=== PATIENT | female | born 1965 | race Caucasian/White ===

== ENCOUNTER → 2016-11-16 | Outpatient (CLI) | payer OTHER ==
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
== END ==
LOC: RADUSWWP 15:23
PROVIDERS: ATTEND Internal Medicine
DX: M79.661 Pain in right lower leg (principal); R22.41 Localized swelling, mass and lump, right lower limb

== ENCOUNTER 2016-12-20 13:11 | Observation (INO) | payer OTHER ==
[2016-12-05 12:39] VITALS: BMI 32.1
[~2016-12-20 13:11] MED LIST: DEXAMETHASONE SOD PHOSPHATE 10 MG/ML 1 ML VIAL IV ONE; HYDROmorphone 1 MG/ML 1 ML SYRINGE IVP PRN; LIDOCAINE 1% 20 ML VIAL (10MG/ML) FOR IV START INTRADERMA PRN; MIDAZOLAM 2 MG/2 ML VIAL IV PRN; SCOPOLAMINE 1.5MG/72HR PATCH TRANSDERM ONE; ceFAZolin 2 GM in SODIUM CHLORIDE 0.9% 100 ML IVPB ONE
[2016-12-20] MEDS: LACTATED RINGERS 1,000 ML IV SCH (13:39)
[2016-12-20] MEDS: ONDANSETRON 4 MG/2 ML VIAL IVP ONE ×2 (13:43→19:55)
[2016-12-20] MEDS ORDERED: LIDOCAINE 1% INJ 10MG/ML (20 ML MDV) ONE (14:53)
[2016-12-20] MEDS ORDERED: KETOROLAC 30 MG/ML 1 ML VIAL ONE (14:53)
[2016-12-20] MEDS ORDERED: MIDAZOLAM 2 MG/2 ML VIAL ONE (14:53)
[2016-12-20] MEDS ORDERED: METOPROLOL TARTRATE 5 MG/5 ML VIAL IVP ONE (14:53)
[2016-12-20] MEDS ORDERED: SUCCINYLCHOLINE CHLORIDE 100 MG/5 ML SYR IV ONE (14:53)
[2016-12-20] MEDS ORDERED: fentaNYL (PF) 50 MCG/ML 2 ML AMP ONE (14:53)
[2016-12-20] MEDS ORDERED: PROPOFOL 10 MG/ML 20 ML VIAL IV ONE (14:53)
[2016-12-20] MEDS ORDERED: HYDROmorphone (PF) 1 MG/ML ONE (14:53)
[2016-12-20] MEDS ORDERED: ceFAZolin 1,000 MG in SODIUM CHLORIDE 0.9% 1,000 ML IRRIGATION ONE (15:24)
[2016-12-20] MEDS ORDERED: LACTATED RINGERS 1,000 ML IV ONE (16:15)
[2016-12-20] MEDS ORDERED: DIAZEPAM 5 MG TAB PO PRN (18:24)
[2016-12-20] MEDS ORDERED: HYDROmorphone 1 MG/ML 1 ML SYRINGE IVP PRN (18:24)
[2016-12-20] MEDS ORDERED: NALOXONE 0.4 MG/ML 1 ML VIAL IV PRN (18:24)
[2016-12-20] MEDS ORDERED: MAGNESIUM HYDROXIDE 2,400 MG/10 ML CUP PO PRN (18:24)
[2016-12-20] MEDS ORDERED: ONDANSETRON 4 MG/2 ML VIAL IVP PRN (18:24)
[2016-12-20] MEDS ORDERED: ROPIVACAINE 5 MG/ML 30 ML VIAL MISCELLANE ONE (18:27)
[2016-12-20] MEDS: ENOXAPARIN 30 MG/0.3 ML SYRINGE SQ SCH (20:20)
[2016-12-20] MEDS: SENNOSIDES-DOCUSATE SODIUM 1 EACH TAB PO SCH (20:20)
[2016-12-20] MEDS: CALCIUM CARBONATE 500 MG CHEWABLE PO SCH (20:21)
[2016-12-20] MEDS: ceFAZolin 2 GM in SODIUM CHLORIDE 0.9% 100 ML IVPB SCH (22:54)
[2016-12-21] MEDS: HYDROcodone/APAP 5-325MG 1 EACH TAB PO PRN ×3 (00:45→19:29)
[2016-12-21] MEDS: HYDROmorphone 1 MG/ML 1 ML SYRINGE IVP PRN ×2 (02:55→08:54)
[2016-12-21] MEDS: LACTATED RINGERS 1,000 ML IV SCH (06:09)
--- NOTE | 2016-12-21 06:40 | FL ---
FLUOROSCOPY 4 minutes and 54 seconds of fluoroscopy time were utilized during internal fixation of the left foot. 2 images document the procedure.
[2016-12-21] MEDS ORDERED: ONDANSETRON 4 MG/2 ML VIAL IVP PRN (08:09)
[2016-12-21] MEDS: ceFAZolin 2 GM in SODIUM CHLORIDE 0.9% 100 ML IVPB SCH (08:54)
[2016-12-21] MEDS: CALCIUM CARBONATE 500 MG CHEWABLE PO SCH ×3 (09:02→20:54)
--- NOTE | 2016-12-21 10:31 | P.OP ---
Date of Procedure: 12/20/16 Preoperative Diagnosis: 1. Closed, comminuted left navicular body fracture 2. Left talonavicular joint dislocation Postoperative Diagnosis: Same Procedure(s) Performed: 1. Left talonavicular fusion 2. Open reduction of left talonavicular dislocation 3. Open reduction and internal fixation of left navicular fracture Implants: Anesthesia: CESAR, [facility] Surgeon: Sarmad Mitchell Estimated Blood Loss (ml): 150 IV fluids (ml): 1,100 Condition: stable Disposition: PACU Indications for Procedure: The patient is a very pleasant 51-year-old female who is a former smoker. The patient sustained an isolated injury to her left foot when she fell in October 2016. She was initially seen at an outside hospital where x-rays and a computed tomography scan were taken of her left foot which showed a comminuted navicular fracture and dislocation of the talonavicular joint. She was placed in a splint and follow-up was arranged to local hospital. The patient wanted to be treated closer to home so she followed up in our office with my partner a week later. She was then referred to me. I initially saw the patient several weeks out from her injury and the talonavicular joint was still dislocated with no prior attempts at reduction. I had a lengthy discussion with the patient and her on treatment. We discussed open reduction and internal fixation of the talonavicular joint and navicular fracture versus a primary fusion of the talonavicular joint. I reviewed the computed tomography scan with the patient and her which showed a complicated navicular fracture with comminution of the lateral aspect of the navicular, dislocation of the talonavicular joint, and a large impaction injury of the talar head. Due to the extensive damage to the joint and the patient being over 50 years old my recommendation was to proceed with a primary fusion. The patient and her understood the implications and loss of function associated with a fusion. They also understand the severe nature of her injury and her delayed presentation to my office. We discussed the potential risks and complications of surgery including but not limited to risk of anesthesia, risk of superficial infection, risk of deep infection, risk of nonunion of the fusion site, risk of delayed union of the fusion site, risk of malunion of the fusion, risk of postoperative instability with re-displacement of the dislocation, risk of damage to local blood vessels resulting in loss of blood flow to the foot, risk of damage to local sensory nerves resulting in temporary or permanent numbness, risk of chronic pain, risk of chronic swelling, risk of decreased motion of the foot due to the fusion, risk of adjacent joint arthritis, risk of symptomatic hardware, risk of difficulty regaining preinjury level of function, risk of need for further surgery, risk of generalized dissatisfaction with surgery, and possibly loss of life or limb. Again the patient understands the implications of a fusion and requested that I go forward with a primary fusion of her injury. Both her and her provided their verbal and written consent to go forward with surgery. Operative Findings: Was a highly comminuted navicular fracture with multiple loose pieces. There was a large impaction injury of the talar head involving one third the joint surface Description of Procedure: The patient was identified in preoperative holding and the correct left leg was marked with my initials. I reviewed the consent form with the patient and her and all of their questions were answered. The patient was then brought back to the operating room by anesthesia and positioned on the OR table. A general anesthetic and preoperative antibiotics were administered. A tourniquet was applied to the proximal aspect of the left thigh. A bone foam bump was placed under her left buttock internally rotating the leg to neutral. The patient's leg was then prepped and draped in the standard sterile fashion. Prior to starting surgery timeout was performed identifying the correct patient , operative extremity, and procedure. He did, exsanguinated with an Esmarch bandage, and the tourniquet was inflated to 250 mmHg. I began by outlining a medial incision the talonavicular joint starting at the tip of the medial malleolus and ending over the medial cuneiform. Skin incision was made with a 15 blade scalpel and dissection was carried down carefully to the subcutaneous tissue with tenotomy scissors. Crossing sensory nerves tract did and veins were controlled with electrocautery. I developed the interval between the tibialis anterior and posterior tibial tendon. Upon incising the talonavicular joint capsule there was a large kat of hematoma. The joint was then opened and exposed. On inspection of the joint there was a very large impaction injury involving one third of the talar head. There is significant comminution of the navicular with multiple intra-articular fragments. K wires a joint distractor were placed with 1 in the talar neck and the other in the medial and middle cuneiform. Distractor was placed over the K wires and gently opened to allow further inspection of the joint. Due to the level of comminution and damage to the talar head I decided to go forward with the fusion. Articular cartilages removed from the visible portion of the joint with a series of osteotomes and curettes. A second incision was then made over the lateral aspect of the foot in line with the fourth metatarsal. Skin incision was made to 15 blade scalpel and dissection was carried down carefully to subcutaneous tissue with tenotomy scissors. The extensor tendons were retracted and the intrinsic foot muscles were incised and retracted. I came down upon the lateral aspect of the talonavicular joint. There was 1 large articular fragment and multiple small osteochondral fragments. The small fracture fragments were debrided and removed. The articular cartilage on the large navicular fragment and lateral third of the talar head were removed. 0.0 mm drill bit was used to perforate the talar head and large fragments of the navicular. At this point I attempted to fix the large lateral fragment to the main talar body fragment. A K wire was placed from lateral to medial across this large fragment into the medial talar body. A partially threaded cannulated 3.0 mm screw was placed across the K wire generating compression of the dorsal lateral fragment to the talar body. At this point attention was turned to the knee to obtain bone graft. A longitudinal incision was made just lateral to the tibial tubercle over Kiesha' s tubercle. Skin incision was made a 15 blade scalpel and dissection was carried down carefully to the fascia over the anterior musculature which was also incised longitudinally in line with the skin incision. The muscle was gently dissected off of the anterolateral tibia and a 4.5 mm drill bit was used to create a hole in the tibia. Using a curved curet cancellus bone was harvested from the proximal tibia and handed off to the back table. Once an adequate amount of bone had been harvested a clean sponge was placed in the wound to help achieve hemostasis. Attention was then turned back to the foot. The bone graft previously harvested was mixed with Augment to help facilitate fusion. The mixture of bone graft and augment was then placed in the talonavicular joint. I then carefully reduced the joint and held the reduction with multiple K wires for cannulated 45 screws. I placed 3 screws medially through the main navicular body fragment and tuberosity into the talus. Partially threaded cannulated 4.5 screws were placed generating excellent compression. The position of the screws were verified with C-arm fluoroscopy. The talonavicular joint appeared to be reduced on a lateral view of the foot and AP view of the foot and the screws appeared to be crossing the talonavicular joint without any intra- articular violation. I then placed a fourth screw over the dorsal aspect of the midfoot through a stab incision. A stab incision was made between the medial and lateral incision. A K wire was placed over the navicular aiming toward the talar head. A partially-threaded 45 screw was placed across the joint. At this point final x-rays were taken. The joint appeared to be reduced and there was compression across the talonavicular joint with all of the screws. None of the screws were intra-articular. At this point the tourniquet was let down for total tourniquet time of 124 minutes. All wounds were copiously irrigated. The medial talonavicular joint capsule was closed with a running 2-0 Vicryl stitch. The deep subcu was reapproximated using 2-0 Vicryl stitches. The skin was closed using 3-0 nylon horizontal mattress stitches. The lateral incision was irrigated. The fascia overlying the EDB muscle was closed with a running 2-0 Vicryl. The deep subcu was reapproximated using 2-0 Vicryl and the skin was closed using 3-0 nylon horizontal mattress stitches. The stab incision over the dorsum of the foot was closed with a single 3-0 nylon stitch. The incision over the anterolateral aspect of the knee was irrigated. The fascia over the tibialis anterior was closed with a running 2-0 Vicryl. The deep subcu was reapproximated using interrupted 2-0 Vicryl. The skin was closed using 3-0 nylon horizontal mattress stitches. After all incisions were closed I verified that all instrument, sponge, and sharp counts were correct. A dressing consisting of Betadine soaked Adaptic, 4 x 4's, and web roll was applied. The drapes were taken down and a very well- padded bulky Leal splint was applied with the ankle at neutral. The patient was then awoken from her anesthetic, transferred from the operating room table to the [facility] and brought to PACU in stable condition.
--- NOTE | 2016-12-21 10:34 | P.PN ---
Subjective Pain in the left foot, ankle and knee is well-controlled. The patient's only complaint this morning is a headache. She denies chest pain or shortness of breath. Objective - Vital Signs Vital signs: Vital Signs Temp 98.2 F 12/21/16 07:00 Pulse 71 12/21/16 07:00 Resp 17 12/21/16 07:00 BP 101/57 12/21/16 07:00 Pulse Ox 98 12/21/16 07:00 Intake & Output 12/20/16 12/21/16 12/21/16 18:59 06:59 18:59 Intake Total 1501 550 Output Total 150 Balance 1351 550 Weight 113.398 kg Intake: IV 1501 100 Intake, IV Titration 250 Amount Lactated Ringers 1,000 ml 250 @ 20 mls/hr IV .Q24H KELSEA Rx#:[id number] Oral 200 Output: Estimated Blood Loss 150 Other: # Voids 1 - Exam The patient is in no apparent distress and is alert and oriented. A focused exam of the left lower extremity was conducted. On inspection the patient has a clean-appearing bulky Leal splint with no saturated blood or drainage. The tips the toes are warm and well-perfused brisk capillary refill. There is no pain with passive range of motion of the toes. Consistent with a popliteal nerve block. Assessment and Plan Plan: Postoperative day #1 status post open reduction of talonavicular joint dislocation, open reduction internal fixation of navicular fracture, and proximal tibial bone graft harvest. 1. Strict nonweightbearing left lower extremity, ice and elevate 2. DVT prophylaxis with Lovenox 30 mg twice a day while in the hospital. Discharge home on aspirin 325 mg twice daily 3. 2 doses postoperative antibiotics 4. Physical therapy for crutch training 5. Bone health with calcium carbonate 500 mg 3 times a day, vitamin D3 2000 units daily, and 25-hydroxy vitamin D level pending 6. Patient can discharge home when her pain is controlled on oral narcotic pain medications and she passes physical therapy
[2016-12-21] MEDS: SODIUM CHLORIDE 0.9% 1,000 ML IV SCH ×3 (14:18→20:10)
[2016-12-21] MEDS: MULTIVITAMINS, THERA 1 EACH TAB PO SCH (14:19)
[2016-12-21] MEDS: CHOLECALCIFEROL 1,000 UNIT TAB PO SCH (14:19)
[2016-12-21] MEDS: ENOXAPARIN 30 MG/0.3 ML SYRINGE SQ SCH ×2 (14:21→20:54)
[2016-12-21] MEDS: SENNOSIDES-DOCUSATE SODIUM 1 EACH TAB PO SCH (20:54)
[2016-12-22] MEDS: HYDROcodone/APAP 5-325MG 1 EACH TAB PO PRN ×5 (00:03→23:46)
[2016-12-22] MEDS: LACTATED RINGERS 1,000 ML IV SCH (02:00)
[2016-12-22] MEDS: CALCIUM CARBONATE 500 MG CHEWABLE PO SCH ×3 (09:00→21:15)
--- NOTE | 2016-12-22 11:12 | P.PN ---
Subjective Principal diagnosis: status post open reduction of talonavicular joint dislocation, open reduction internal fixation of navicular fracture, and proximal tibial bone graft harvest. Patient is pleasant 51-year-old female seen at bedside this morning. She is Postoperative day #2 status post open reduction of talonavicular joint dislocation, open reduction internal fixation of navicular fracture, and proximal tibial bone graft harvest. She has pain at the surgical site as expected. She is denying any new complaints. She is tolerating by mouth pain medication. She is denying calf pain, numbness, tingling, chest pain, fever, chills, nausea, vomiting or shortness of breath. Objective - Vital Signs Vital signs: Vital Signs Temp 98.1 F 12/22/16 07:00 Pulse 80 12/22/16 07:00 Resp 16 12/22/16 07:00 BP 114/77 12/22/16 07:00 Pulse Ox 97 12/22/16 07:00 Intake & Output 12/21/16 12/22/16 12/22/16 18:59 06:59 18:59 Intake Total 800 1100 Balance 800 1100 Weight 113.398 kg Intake: Intake, IV Titration 800 1100 Amount Sodium Chloride 0.9% 1, 800 1100 000 ml @ 100 mls/hr IV . Q10H [facility] Rx#:[id number] Other: # Voids 2 - Exam Inspection of the left lower extremity shows a clean-appearing bulky Leal splint with no saturated blood or drainage. Armond bandages in appropriate placement and fitting. The tips the toes are warm and well-perfused brisk capillary refill. Sensation to light touch is intact in all digits. There is no pain with passive range of motion of the toes. Lower extremity proximal to the Armond bandage is benign and neurovascular status intact. - Constitutional General appearance: Present: no acute distress - Psychiatric Psychiatric: Present: A&O x's 3, appropriate affect, intact judgment & insight Assessment and Plan (1) Talonavicular synostosis Narrative/Plan: Patient continue with routine postop orthopedic protocol including pain management, wound and bandage care, physical therapy, DVT prophylaxis and postoperative medical management. At this point due to her pain control, difficulty with ambulation and inadequate assistance at home, she would be better served at an extended care facility for physical rehabilitation. Order has been placed for case management to assist with facilitating transfer to an [facility] if possible. Status: Acute Time with Patient: Less than 30
[2016-12-22] MEDS: CHOLECALCIFEROL 1,000 UNIT TAB PO SCH (11:20)
[2016-12-22] MEDS: MULTIVITAMINS, THERA 1 EACH TAB PO SCH (11:20)
[2016-12-22] MEDS: ENOXAPARIN 30 MG/0.3 ML SYRINGE SQ SCH ×2 (11:20→21:15)
[2016-12-22] MEDS: SODIUM CHLORIDE 0.9% 1,000 ML IV SCH (13:51)
[2016-12-22] MEDS ORDERED: SENNOSIDES-DOCUSATE SODIUM 1 EACH TAB PO STA (14:42)
[2016-12-22] MEDS: SENNOSIDES-DOCUSATE SODIUM 1 EACH TAB PO SCH (21:15)
[2016-12-23] MEDS: SODIUM CHLORIDE 0.9% 1,000 ML IV SCH ×3 (01:19→21:19)
[2016-12-23] MEDS: HYDROcodone/APAP 5-325MG 1 EACH TAB PO PRN ×4 (04:46→19:56)
[2016-12-23] MEDS: LACTATED RINGERS 1,000 ML IV SCH (06:28)
[2016-12-23] MEDS: CALCIUM CARBONATE 500 MG CHEWABLE PO SCH ×3 (09:56→21:18)
[2016-12-23] MEDS: ENOXAPARIN 30 MG/0.3 ML SYRINGE SQ SCH ×2 (09:57→21:18)
--- NOTE | 2016-12-23 10:17 | P.PN ---
Subjective The patient is a 51-year-old female who is postop day #3 status post talonavicular fusion for a comminuted navicular fracture dislocation. This morning she is doing well and her pain is controlled. She is sitting up in a chair. She denies chest pain or shortness of breath. She had a bowel movement yesterday. Objective - Vital Signs Vital signs: Vital Signs Temp 97.0 F L 12/23/16 07:00 Pulse 78 12/23/16 07:00 Resp 16 12/23/16 07:00 BP 128/77 12/23/16 07:00 Pulse Ox 98 12/23/16 07:00 Intake & Output 12/22/16 12/23/16 12/23/16 18:59 06:59 18:59 Intake Total 1040 1200 Output Total 200 Balance 840 1200 Intake: IV 1200 Sodium Chloride 0.9% 1, 1200 000 ml @ 100 mls/hr IV . Q10H [facility] Rx#:[id number] Intake, IV Titration 800 Amount Sodium Chloride 0.9% 1, 800 000 ml @ 100 mls/hr IV . Q10H [facility]SEA Rx#:[id number] Oral 240 Output: Urine 200 Other: Voiding Method Toilet # Voids 2 1 - Exam On exam the patient is sitting at bedside in a chair. She is in no apparent distress and is alert and oriented. On examination of her surgical leg there is a clean-appearing bulky Leal splint with no saturated blood or drainage. The tips of her toes are warm and well perfused with brisk capillary refill. Sensation is intact to light touch in her toes. She has no pain with passive range of motion of the toes. Assessment and Plan Plan: Postoperative day #3 status post open reduction internal fixation comminuted navicular fracture, primary fusion talonavicular joint and proximal tibial bone graft harvest. 1. Continue strict nonweightbearing on the operative leg. Ice and elevate. 2. DVT prophylaxis with Lovenox while in the hospital and aspirin tendon and 25 mg twice daily after discharge 3. Awaiting final discharge recommendations regarding home versus rehab.
[2016-12-23] MEDS ORDERED: MAG HYDROX/AL HYDROX/SIMETH 30 ML CUP PO PRN (14:25)
[2016-12-23] MEDS: MULTIVITAMINS, THERA 1 EACH TAB PO SCH (18:02)
[2016-12-23] MEDS: CHOLECALCIFEROL 1,000 UNIT TAB PO SCH (18:02)
[2016-12-23] MEDS: SENNOSIDES-DOCUSATE SODIUM 1 EACH TAB PO SCH (21:18)
[2016-12-24] MEDS: HYDROcodone/APAP 5-325MG 1 EACH TAB PO PRN ×2 (00:56→14:02)
[2016-12-24 00:59] VITALS: PULSE 83; RESP 16
[2016-12-24 09:10] VITALS: BP 132/82; TEMP 98.5
[2016-12-24] MEDS: MULTIVITAMINS, THERA 1 EACH TAB PO SCH (12:00)
[2016-12-24] MEDS: CALCIUM CARBONATE 500 MG CHEWABLE PO SCH (12:00)
[2016-12-24] MEDS: SODIUM CHLORIDE 0.9% 1,000 ML IV SCH (12:11)
[2016-12-24] MEDS: LACTATED RINGERS 1,000 ML IV SCH (12:12)
[2016-12-24] MEDS: ENOXAPARIN 30 MG/0.3 ML SYRINGE SQ SCH (12:12)
--- NOTE | 2016-12-24 12:46 | P.DS ---
Providers Date of admission: 12/21/16 02:51 Expected date of discharge: 12/24/16 Attending physician: Sarmad Mitchell Primary care physician: Stated None Hospital Course: This is a 51-year-old female with known history of a comminuted navicular fracture and dislocation of the talonavicular joint of the left lower extremity. The patient presents for evaluation. After discussion and consideration patient elects to proceed with a left talonavicular fusion, open reduction of left talonavicular dislocation, open reduction and internal fixation of left navicular fracture. The patient is seen preoperatively by Dr. Mitchell and cleared for surgery. Patient is admitted to [facility] on 12/21/2016 for left talonavicular fusion, open reduction of left talonavicular dislocation, open reduction and internal fixation of left navicular fracture. The procedures performed without complication or sequelae. The patient is doing well postoperatively. Labs and vital signs are stable on day of discharge. On day of discharge patient's splint is clean, dry and intact. Sensation with light touch is intact to the toes of the left foot. Neurovascular status to the left lower extremity is intact. Patient is discharged home in good condition. Please see med rec for accurate list of home medications. Plan - Discharge Summary New Discharge Prescriptions: New Aspirin 325 mg PO BID #60 tab Docusate [Colace] 100 mg PO BID #60 capsule HYDROcodone/APAP 7.5-325MG [[place] 7.5-325] 1 - 2 tab PO Q6HR PRN #60 tab PRN Reason: Pain Calcium Carbonate 500 mg PO TID #90 tablet Cholecalciferol [Vitamin D3] 2,000 unit PO DAILY #30 tablet Aspirin 325 mg PO BID #60 tab HYDROcodone/APAP 5-325MG [[place] 5-325] 1 - 2 tab PO Q4-6H PRN #90 tab PRN Reason: Pain Sennosides-Docusate Sodium [Senokot-S] 1 tab PO BID #60 tablet No Action Pregabalin [Lyrica] 75 mg PO BID HYDROcodone/APAP 7.5-325MG [[place] 7.5-325] 1 tab PO Q12HR Ibuprofen [Motrin] 1,600 mg PO Q6HR PRN PRN Reason: Pain Discharge Medication List Pregabalin [Lyrica] 75 mg PO BID 10/29/15 [History] HYDROcodone/APAP 7.5-325MG [[place] 7.5-325] 1 tab PO Q12HR 12/05/16 [History] Ibuprofen [Motrin] 1,600 mg PO Q6HR PRN 12/05/16 [History] Aspirin 325 mg PO BID #60 tab 12/22/16 [Rx] Calcium Carbonate 500 mg PO TID #90 tablet 12/22/16 [Rx] Cholecalciferol [Vitamin D3] 2,000 unit PO DAILY #30 tablet 12/22/16 [Rx] Docusate [Colace] 100 mg PO BID #60 capsule 12/22/16 [Rx] HYDROcodone/APAP 7.5-325MG [[place] 7.5-325] 1 - 2 tab PO Q6HR PRN #60 tab [Rx] Aspirin 325 mg PO BID #60 tab 12/24/16 [Rx] HYDROcodone/APAP 5-325MG [[place] 5-325] 1 - 2 tab PO Q4-6H PRN #90 tab 12/24/16 [ Rx] Sennosides-Docusate Sodium [Senokot-S] 1 tab PO BID #60 tablet 12/24/16 [Rx] Follow up Appointment(s)/Referral(s): Sarmad Mitchell MD [Medical Doctor] - 2 Weeks Activity/Diet/Wound Care/Special Instructions: Take meds as directed Follow-up with Dr. Mitchell in office Nonweightbearing left lower extremity for three months Keep left lower extremity elevated Keep wound, splint and bandage clean and dry Discharge Disposition: HOME SELF-CARE
== END 2016-12-24 14:16 | disposition home or self-care (01) ==
LOC: OR 13:11 → EDSTATUS 15:40 → 3SUR 18:11 → OR 12-21 02:51 → 3SUR 12-21 02:51
PROVIDERS: ADMIT Orthopaedic Surgery; ATTEND Orthopaedic Surgery
DX: S92.252A Displaced fracture of navicular [scaphoid] of left foot, initial encounter for closed fracture (principal); V19.9XXA Pedal cyclist (driver) (passenger) injured in unspecified traffic accident, initial encounter; Y93.55 Activity, bike riding; Y92.480 Sidewalk as the place of occurrence of the external cause; Z87.891 Personal history of nicotine dependence; R51 Headache
CPT/HCPCS: 28465; 28737; 20900; 96376; 96365; 96366; 96375; 97116 ×2; 97161; 81025; 82306; 73620; G0378 ×4; C1713; J2250; J1100; J0690 ×3; J2405; J2001; J3010; J1885; J1650 ×4; J1170 ×2; J2795; J0330; J2704

== ENCOUNTER 2019-07-31 06:37 | Day surgery (SDC) | payer OTHER ==
[2019-07-29 15:32] VITALS: BMI 32.1
[~2019-07-31 06:37] MED LIST changes: -DEXAMETHASONE SOD PHOSPHATE 10 MG/ML 1 ML VIAL IV ONE; -HYDROmorphone 1 MG/ML 1 ML SYRINGE IVP PRN; +LACTATED RINGERS 1,000 ML IV SCH; -MIDAZOLAM 2 MG/2 ML VIAL IV PRN; +ONDANSETRON 4 MG/2 ML VIAL IVP ONE; -SCOPOLAMINE 1.5MG/72HR PATCH TRANSDERM ONE; -ceFAZolin 2 GM in SODIUM CHLORIDE 0.9% 100 ML IVPB ONE; +fentaNYL (PF) 50 MCG/ML 2 ML AMP IV PRN
[2019-07-31 07:11] VITALS: TEMP 97.2
[2019-07-31] MEDS ORDERED: SUCCINYLCHOLINE CHLORIDE 100 MG/5 ML SYR IV ONE (08:43)
[2019-07-31] MEDS ORDERED: fentaNYL (PF) 50 MCG/ML 2 ML AMP ONE (08:43)
[2019-07-31] MEDS ORDERED: LIDOCAINE 1% INJ 10MG/ML (20 ML MDV) ONE (08:43)
[2019-07-31] MEDS ORDERED: MIDAZOLAM 2 MG/2 ML VIAL ONE (08:43)
[2019-07-31] MEDS ORDERED: PROPOFOL 10 MG/ML 20 ML VIAL IV ONE (08:43)
[2019-07-31] MEDS ORDERED: BUPIVACAINE (PF) 0.5% 30 ML VIAL SQ ONE (09:42)
[2019-07-31] MEDS ORDERED: LACTATED RINGERS 1,000 ML IV ONE (09:51)
--- NOTE | 2019-07-31 10:00 | P.OP ---
Date of Procedure: 07/31/19 Preoperative Diagnosis: Systematic hardware left foot status post talonavicular fusion for left talonavicular fracture dislocation Postoperative Diagnosis: Same Procedure(s) Performed: Hardware removal deep, left foot Anesthesia: ZANDRA Surgeon: Sarmad Mitchell Food Quality Tester #1: Orlin Gurrola Estimated Blood Loss (ml): 5 IV fluids (ml): 1,000 Pathology: none sent Condition: stable Disposition: PACU Indications for Procedure: The patient is a very [id number] female who sustained a fracture dislocation of the left talonavicular joint several years ago. She presented to my office subacutely and due to the chronic nature of the dislocation and the characteristic of the fracture I recommended a primary fusion of the talonavicular joint. She went on to heal this and do well. She's had some limitations with stiffness which is to be expected. Over the last 6 months she has developed symptoms which she treated to her hardware. Her x-rays showed a solid fusion. She requested hardware removal. We discussed the potential risks and complications of hardware removal including but not limited to risk of anesthesia, infection, delayed wound healing, damage to local blood vessels or nerves, continued or worsened pain, DVT, PE, dissatisfaction with surgical outcome, and possibly loss of life or limb. The patient voiced understanding of these potential complications and also acknowledged other less common compli cations. She understands the potential for continued or worsened pain. Description of Procedure: The patient was notified and prepped with holding and the correct left leg was marked with my initials. I reviewed the consent form with the patient, her , and her mom. All their questions were answered. The patient was then brought back to the operating room. She was positioned on the or table where a general anesthetic and preoperative antibiotics were given. A tourniquet was applied the proximal aspect the left leg. The left leg was then prepped and draped in the standard sterile fashion. Prior to starting surgery timeout was performed identifying the correct patient, operative extremity, and procedure. The patient's leg was then elevated, exsanguinated with an Esmarch bandage, the tourniquet was inflated to 250 mmHg. I began by outlining the prior scars over the medial, dorsal, and lateral foot. Fluoroscopy was used to verify the level of the screws in relation to the incisions. I used a small some out of the incisions possible to safely access the screws. I began with the medial incision. Skin incision made with a scalpel and dissection was carried down carefully through subcutaneous tissues down to bone. The 3 medial screws were identified and removed. The wound was thoroughly irrigated and closed in layers. Attention was then turned to the dorsal stab incision. A small incision was made with a 15 blade scalpel and dissection was carried down carefully to the subtendinous tissue. The screw was identified and carefully removed. The wound was irrigated and closed in layers. The lateral incision was then made with a 15 blade scalpel and dissection was carried down carefully to the subcuticular tissue. The screw was identified and carefully removed. The wound was irrigated and closed in layers. Final fluoroscopic images were taken verifying removal of all the hardware. The fusion appeared solid. A sterile dressing was applied followed by an Armond wrap. The drapes were taken down and the patient was transferred from the OR table to a gurney, extubated, and brought to recovery having, procedure well. Plan: The patient is going to discharge home as an outpatient. She can weight- bear as tolerated in a tall boot. She is to leave her surgical dressing on for 2 days. After 2 days she can remove the dressing. She'll follow-up in the office in 2 weeks for wound check, and weightbearing x-rays of the foot.
--- NOTE | 2019-07-31 10:04 | XR ---
EXAMINATION TYPE: XR foot limited LT, FL guidance operating room DATE OF EXAM: 07/31/2019 CLINICAL HISTORY: Fluoroscopic documentation during hardware removal of the left foot. TECHNIQUE: Fluoroscopy. COMPARISON: None. FINDINGS: Fluoroscopic guidance was provided during procedure performed by Dr. Mitchell. A total of 22 seconds of fluoroscopic time was utilized during the procedure and 1 spot images was acquired dur ing hardware removal of the left foot. IMPRESSION: As Above.
[2019-07-31 10:23] VITALS: RESP 16
[2019-07-31] MEDS ORDERED: HYDROcodone/APAP 5-325MG 1 EACH TAB PO ONE (11:09)
[2019-07-31 11:31] VITALS: BP 123/87; PULSE 65
== END 2019-07-31 12:07 | disposition home or self-care (01) ==
LOC: OR 06:37
PROVIDERS: ATTEND Orthopaedic Surgery
DX: T84.84XA Pain due to internal orthopedic prosthetic devices, implants and grafts, initial encounter (principal); R63.5 Abnormal weight gain; Z87.820 Personal history of traumatic brain injury; L40.50 Arthropathic psoriasis, unspecified; F43.10 Post-traumatic stress disorder, unspecified; Z85.820 Personal history of malignant melanoma of skin; Z79.899 Other long term (current) drug therapy; Z88.5 Allergy status to narcotic agent; Z91.040 Latex allergy status; Z83.3 Family history of diabetes mellitus
CPT/HCPCS: 81025; 73620; 20680; J2250; J0690; J2405; J2001; J3010; J0330; J2704

== ENCOUNTER → 2022-03-17 | Outpatient (CLI) | payer OTHER ==
--- NOTE | 2022-03-18 04:10 | MR ---
EXAMINATION TYPE: MR knee RT wo con DATE OF EXAM: 03/17/2022 COMPARISON: None HISTORY: Right knee pain, pain behind knee, painful kneecap, and swelling for 2 years. Multiplanar multiecho imaging of the right knee with no contrast. There is knee joint effusion. There is 5 x 2 cm popliteal cyst. The anterior and posterior cruciate l igaments are intact. There is spurring on the anterior femur. There is subcutaneous edema anterior to the patella. There is moderate narrowing of the lateral joint space. There is lateral displacement of the lateral meniscus. There is spurring of the femoral and tibial condyles. The collateral ligaments appear intac t. There is 1 cm area of edema in the medial femoral condyle. The medial meniscus is intact. There is complex tear of the anterior horn of the lateral meniscus which appears partially absent. There is s ome deformity in truncation of the posterior horn of the lateral meniscus. IMPRESSION: There is large knee joint effusion. Popliteal cyst. Moderately severe osteoarthritis in the lateral j oint space. There is obliteration of the anterior horn of the lateral meniscus. There is some truncat ion of the posterior horn of the lateral meniscus. Lateral joint space narrowing. No fracture seen.
== END | disposition home or self-care (01) ==
LOC: RADMRIMAIN 18:21
PROVIDERS: ATTEND Family Medicine
DX: M17.11 Unilateral primary osteoarthritis, right knee (principal); M71.21 Synovial cyst of popliteal space [Baker], right knee

== ENCOUNTER 2022-04-06 08:35 | Day surgery (SDC) | payer OTHER ==
[2022-04-05 11:42] VITALS: BMI 30.5
[~2022-04-06 08:35] MED LIST changes: -LIDOCAINE 1% 20 ML VIAL (10MG/ML) FOR IV START INTRADERMA PRN; -ONDANSETRON 4 MG/2 ML VIAL IVP ONE; -fentaNYL (PF) 50 MCG/ML 2 ML AMP IV PRN
[2022-04-06 09:10] VITALS: TEMP 97
[2022-04-06] MEDS ORDERED: PROPOFOL 10 MG/ML 20 ML VIAL IV ONE (09:31)
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
--- NOTE | 2022-04-06 09:46 | P.OP ---
Date of Procedure: 04/06/22 Preoperative Diagnosis: Positive colon guard test Postoperative Diagnosis: Normal colon Procedure(s) Performed: Colonoscopy Anesthesia: MAC Surgeon: Henry Baker Pathology: none sent Condition: stable Disposition: PACU Description of Procedure: PROCEDURE: The patient was placed on the endoscopy table in the lateral position. Digital rectal examination was performed which revealed no abnormalities. Flexible colonoscope was then placed in the patient's anus and passed throughout the entire colon. The ileocecal valve was visualized. The cecum, ascending, transverse, descending and sigmoid colon were normal. The rectum was normal as well. There were no masses, polyps or diverticula noted in the entire colon. SUMMARY OF FINDINGS: Normal colonoscopy.
[2022-04-06 10:00] VITALS: BP 131/66; PULSE 66; RESP 20
== END 2022-04-06 10:30 | disposition home or self-care (01) ==
LOC: ORWHC2ENDO 08:35
PROVIDERS: ATTEND Surgery
DX: R19.5 Other fecal abnormalities (principal); R41.3 Other amnesia; Z85.828 Personal history of other malignant neoplasm of skin; Z87.891 Personal history of nicotine dependence; Z80.59 Family history of malignant neoplasm of other urinary tract organ; Z80.8 Family history of malignant neoplasm of other organs or systems; Z82.49 Family history of ischemic heart disease and other diseases of the circulatory system; Z79.899 Other long term (current) drug therapy; Z88.5 Allergy status to narcotic agent; Z91.040 Latex allergy status; Z87.820 Personal history of traumatic brain injury
CPT/HCPCS: 45378; J2704

== ENCOUNTER → 2023-04-19 | Outpatient (CLI) | payer OTHER ==
[~2023-04-19] MED LIST changes: -LACTATED RINGERS 1,000 ML IV SCH; +REGADENOSON 0.4 MG/5 ML SYRINGE IV PRN
--- NOTE | 2023-04-19 13:46 | CA ---
Lexiscan Nuclear Stress Test Report Name: Luci Carreno Exam Date: 04/19/2023 10:40 Exam Location: [place] Stress Ht (in): 74 Wt (lb): 250 BSA: 2.39 Ordering Phys: Heron Azul MD Referring Phys: Heron Azul MD Technologist: Alexander Silva Age: 58 Gender: F : 1965 Procedure CPT: Indications: I20.9 angina pectoris ICD-10 Codes: Patient History: CP, REDD, PALP, ANGINA, FAMILY HW (DAD), TOB (QUIT 10 YEARS AGO 1-3PPD X 35 YEARS) Medications: HYDROCODONE, MONTELRAST, CLARITIN, BACLOFIN, ENDOMETRIN Meds past 24 hrs: Pretest Chest Pain: STRESS TEST Lexiscan Protocol Exercise Duration (min:sec): 01:[address] Depressions (mm): Angina Score: Fregoso Score: Resting HR (bpm): 63 Peak HR (bpm): 95 Resting BP (mmHg): 151 / 84 Peak BP (mmHg): / 97 MPHR: 162 Target HR: 138 % MPHR: 59 METS: 1.0 Total Dose: Peak Dose: Atropine: Double Product: BP Response: Stress Termination: INFUSION COMPLETE Stress Symptoms: HEADACHE Stress Summary: ECG ANALYSIS Resting ECG: Stress ECG: CONCLUSIONS Normal heart rate and blood pressure response to Lexiscan infusion No ECG evidence for ischemia Dr. Desmond Gomez MD (Electronically Signed) Final Date: 19 April 2023 13:45
--- NOTE | 2023-04-20 12:15 | NM ---
EXAMINATION TYPE: NM stress lexiscan cardiolite DATE OF EXAM: 04/19/2023 COMPARISON: NONE CLINICAL INDICATION: Female, 58 years old with history of I20.9 ANGINA PECTORIS; TECHNIQUE: After the intravenous administration of 10.66 mCi Tc 99m Sestamibi - Cardiolite resting S PECT images acquired 45 minutes post injection. The patient received 0.4mg Lexiscan, 24.3 mCi Tc 99m Sestamibi - Stress images obtained [address] injection FINDINGS: Review of stress and rest SPECT images demonstrates fixed perfusion defect involving the cardiac apex . There is no evidence for reversible ischemia. Gated analysis shows normal wall motion with an estim ated left ventricular ejection fraction of %. IMPRESSION: No scintigraphic evidence for reversible ischemia.
== END | disposition home or self-care (01) ==
LOC: RADNMMAIN 08:38
PROVIDERS: ATTEND Family Medicine
DX: I20.9 Angina pectoris, unspecified (principal)
CPT/HCPCS: 93017; 78452; A9500; J2785